=== PATIENT | male | born 2000 | race Caucasian/White ===

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

== ENCOUNTER 2022-03-07 11:26 | Emergency (ER) | payer OTHER ==
[~2022-03-07] VITALS: Ht 165.1 cm; Wt 67.5 kg
[2022-03-07] MEDS ORDERED: METH-1165 PO (16:53)
[2022-03-07] MEDS ORDERED: ASPE4PAD TOP (16:53)
[2022-03-07 17:01] VITALS: BP 118/67
== END 2022-03-07 17:02 | disposition home or self-care (01) ==
LOC: M ED 11:26
DX: M54.2 Cervicalgia (principal); M54.9 Dorsalgia, unspecified; V43.52XA Car driver injured in collision with other type car in traffic accident, initial encounter